=== PATIENT | female | born 1960 | race Caucasian/White ===

== ENCOUNTER → 2017-07-12 | Outpatient (CLI) | payer BC, OTHER ==
[2017-07-12 12:29] LABS: BASO % 0.4 %; BASO ABS # 0.03 K/uL (0-0.2); EOS % 1.9 %; EOS ABS # 0.14 K/uL (0-0.5); HEMATOCRIT 42.8 % (37-47); HEMOGLOBIN 13.9 g/dL (12.0-16.0); IG# 0.01 K/uL (0.00-0.02); LYMPH % 32.9 %; LYMPH ABS # 2.39 K/uL (1.2-3.4); MEAN CELL VOLUME 89.7 fL (80-100); MEAN CORPUSCULAR HEMOGLOBIN 29.1 pg (25-34); MEAN CORPUSCULAR HGB CONC 32.5 g/dl (32-36); MEAN PLATELET VOLUME 10.8 fL (7.4-10.4); MONO % 6.9 %; NEUT % 57.8 %; PLATELET COUNT 222 K/uL (130-400); RED CELL DISTRIBUTION WIDTH CV 12.8 % (11.5-14.5); RED CELL DISTRIBUTION WIDTH SD 41.9 fL (36.4-46.3); WHITE BLOOD COUNT 7.27 K/uL (4.8-10.8)
[2017-07-12 13:02] LABS: BLOOD UREA NITROGEN 19 mg/dl (7-18); CALCIUM 9.5 mg/dl (8.5-10.1); CARBON DIOXIDE 27 mmol/L (21-32); CHOLESTEROL 163 mg/dl (0-200); CREATININE 0.71 mg/dl (0.60-1.20); GLUCOSE 107 mg/dl (70-99); POTASSIUM 4.3 mmol/L (3.5-5.1); SODIUM 140 mmol/L (136-145); TRANSFERRIN 230 mg/dl (200-360)
[2017-07-12 13:12] LABS: LDL CHOLESTEROL CALCULATED 96 mg/dl
== END | disposition home or self-care (01) ==
LOC: C.LABPBG 07:40
PROVIDERS: ATTEND Internal Medicine
DX: D64.9 Anemia, unspecified (principal); R73.01 Impaired fasting glucose; I10 Essential (primary) hypertension; Z11.59 Encounter for screening for other viral diseases